=== PATIENT | female | born 1990 | race Caucasian/White ===

== ENCOUNTER 2021-11-27 14:52 | Emergency (ER) | payer OTHER, SELFPAY ==
[2021-11-27 15:40] VITALS: BP 157/95; PULSE 89; RESP 19; TEMP 37.2; O2SAT 100; BMI 24.1
--- NOTE | 2021-11-27 16:00 | PC.NURSE ---
TDAP GIVEN AT THIS TIME IN LEFT DELTOID. LOT #[id number] EXP. 09/17/23
--- NOTE | 2021-11-27 16:00 | EXP.UTC ---
Discharge Plan Referrals Follow up/Referrals: Provider,Referral, MD [Primary Care Provider] - See instructions Activity Restrictions/Add. Instructions Additional Instructions/Restrictions: Do not pick off dermabond allow it wear off Ice packs to brow and nose may help with swelling and bruising Return if need Straight to ER if any life threatening symptoms Clinical Impressions Clinical Impression: Laceration Instructions Patient Instructions: DI for Laceration Repair-Skin Glue Discharge ED Provider: Criss Haw[place] [facility] [place] General Stated complaint: [id number] hit in head, metal gate, home accid Mode of Arrival: Ambulatory Source of Information: Patient Limitations: No Limitations Time Seen by Provider: 11/27/21 16:00 Description of Symptoms (Recalled from Triage Doc. by RN): PATIENT REPORTS A BARN GATE HIT HER IN FACE TODAY. DENIES LOC. 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 and it come back and hit her in the face She has small laceration above left eye brown and small abrasion like lac on nose Denies LOC Related Data Allergies Allergy/AdvReac Type Severity Reaction Status Date / Time amoxicillin Allergy Verified 11/27/21 15:55 Worker's Comp Is this a Worker's Comp case?: No [facility] Medical History (Updated 11/27/21 @ 16:24 by Criss Hawley, CASHIER MANAGER) No significant past medical history Social History (Updated 11/27/21 @ 15:55 by Sarah Rojas RN) Smoking Status: Unknown if ever smoked alcohol intake: never current occupational status: other Travel in the last 8 weeks: None ROS Obtained: Yes All systems reviewed & no additional complaints except as documented and Yes Systems reviewed as appropriate & no additional complaints except as documented Eyes Eyes: Reports system reviewed and no additional complaints, except as documented and Reports as per HPI ENT Ears, Nose, Mouth, and Throat: Reports system reviewed and no additional complaints, except as documented and Reports as per HPI Cardiovascular Cardiovascular: Reports system reviewed and no additional complaints, except as documented and Reports as per HPI Integumentary/Breasts Skin/Breast: Reports system reviewed and no additional complaints, except as documented, Reports as per HPI and Reports other (laceration above left eyebrown adn nose) Neurologic Neurologic: Reports system reviewed and no additional complaints, except as documented, Reports as per HPI and Reports other (Denies loc) Physical Exam General General appearance: alert and in no apparent distress Expanded Head Exam Head image: 1. small laceration noted no active bleeding 2. small lac/abrasion noted no active bleeding Eye Eye exam: Present normal appearance, PERRL and EOMI Respiratory Respiratory exam: Present normal lung sounds bilaterally; Absent respiratory distress Cardiovascular Cardiovascular exam: Present regular rate, normal rhythm and normal heart sounds Neurological Exam Neurological exam: Present alert, oriented X3 and normal gait Medical Decision Making Rod Inquiry Pt receiving controlled substance: No Rod was queried for this patient: No Vital Signs: 11/27/21 15:40 Temperature 98.9 F Temperature Source Oral Pulse Rate [Right Brachial] 89 Respiratory Rate 19 Blood Pressure [Right Arm] 157/95 H Blood Pressure Mean [Right Arm] 115 Blood Pressure Source [Right Arm] Automatic Cuff Blood Pressure Position [Right Arm] Sitting 02 Sat by Pulse Oximetry 100 Oxygen Delivery Method Room Air Medical Decision Narrative: Discussed xray and patient declined Procedures Laceration Laceration 1:
[2021-11-27 16:40] VITALS: BP 157/95; PULSE 89; RESP 19; TEMP 37.2; O2SAT 100
== END 2021-11-27 16:44 | disposition home or self-care (01) ==
LOC: ER 15:00 → UTC 15:01
PROVIDERS: Emergency Provider Nurse Practitioner
DX: S01.81XA Laceration without foreign body of other part of head, initial encounter (principal); S01.21XA Laceration without foreign body of nose, initial encounter; W20.8XXA Other cause of strike by thrown, projected or falling object, initial encounter; Y93.K9 Activity, other involving animal care; Y92.71 Barn as the place of occurrence of the external cause
CPT/HCPCS: 90471; 99212; G0463

== ENCOUNTER 2024-08-25 10:08 | Emergency (ER) | payer BC, SELFPAY ==
[2024-08-25 10:16] VITALS: BP 152/98; PULSE 104; RESP 18; TEMP 36.9; O2SAT 100; BMI 25.7
--- OUTSIDE RECORDS SUMMARY | 2024-08-25 10:20 | XMS_ITS | Encounter Summary ---
Author Organization [employer] Address [address] [place] [id number] Care Team Providers Care Bull Gang Supervisor Name Role Phone Unavailable Primary Care Provider Unavailabl e Encounter Details Date Type Department Care Team (Late st Contact Info) Description 07/03/2018 Transcribed [place] [facility] [place] [facility] [place] [address] ProviderTalia [place] [facility] [place] [address] Social History Tobacco Use Types Packs/Day Years Used Date Smoking Tobacco: Never Assessed Comments Unknown Sex and Gender Information Value Date Recorded Sex Assigned at Female 09/02/2021 7:31 PM CDT Legal Sex Female 7:31 PM CDT Gender Identity Female 09/02/2021 7:31 PM CDT Sexual Orientation Not on file documented as of this encounter Miscellaneous Notes * [employer] Conversion Note - Talia English MD - 07/03/2018 8:51 PM CDT ED Discharge Entered On: 07/03/2018 20:55 EDT Performed On: 07/03/2018 20:51 EDT by Adrienne Martinez RN Discharge Process Patient Disposition : Discharge Personal Belongings With Patient : Yes Patient Education Completed : Yes Teaching Evaluation : Verbalizes understanding IV Discontinued : Not applicable Nursing Documentation Completed : Yes Adrienne Martinez RN - 07/03/2018 20:55 EDT ED Discharge Discharge To : Home with ambulatory/outpatient follow-up Mode Of Departure : Ambulatory, Private vehicle Accompanied By : Unaccompanied Discharge Instructions Reviewed With, Opportunity For Questions Given : Patient Prescriptions Given to Patient : Electronically sent Adrienne Martinez RN - 07/03/2018 20:55 EDT Electronically signed by Benito [facility] Conversion Washerette Machine Operator Magi at 06/24/2022 10:32 PM CDT documented in this encounter Plan of Treatment Not on file documented as of this encounter Visit Diagnoses Not on filedocumented in this encounter
--- OUTSIDE RECORDS SUMMARY | 2024-08-25 10:20 | XMS_ITS | Encounter Summary ---
Author Organization [email or web address] Address [address] [place] [id number] Care Team Providers Care Brain Picker Name Role Phone Unavailable Primary Care Provider Unavailabl e Encounter Details Date Type Department Care Team (Late st Contact Info) Description 07/03/2018 Transcribed Document [facility] [place] [facility] [place] [address] ProviderTalia MD [address] [place] [address] Social History Tobacco Use Types Packs/Day Years Used Date Smoking Tobacco: Never Assessed Comments Unknown Sex and Gender Information Value Date Recorded Sex Assigned at Female 09/02/2021 7:31 PM CDT Legal Sex Female 7:31 PM CDT Gender Identity Female 09/02/2021 7:31 PM CDT Sexual Orientation Not on file documented as of this encounter Miscellaneous Notes * [employer]ner Conversion Note - Historical ProviderMD - 07/03/2018 8:40 PM CDT Electronically signed by Benito, [facility] Conversion Apple Press Operator Cerner at 06/24/2022 10:22 PM CDT documented in this encounter Plan of Treatment Not on file documented as of this encounter Visit Diagnoses Not on filedocumented in this encounter
--- OUTSIDE RECORDS SUMMARY | 2024-08-25 10:20 | XMS_ITS | Referral Summary ---
Author Organization [employer] Address [address] [place] [id number] Care Team Providers Care Upholstered Goods Crafter Name Role Phone Unavailable Primary Care Provider Unavailabl e Social History Tobacco Use Types Packs/Day Years Used Date Smoking Tobacco: Never Assessed Comments Unknown Sex and Gender Information Value Date Recorded Sex Assigned at Female 09/02/2021 7:31 PM CDT Legal Sex Female 7:31 PM CDT Gender Identity Female 09/02/2021 7:31 PM CDT Sexual Orientation Not on file Plan of Treatment Not on file
--- OUTSIDE RECORDS SUMMARY | 2024-08-25 10:20 | XMS_ITS | Encounter Summary ---
Author Organization [employer] Address [address] [place] [address] Care Team Providers Care Wrapper Rewinder Name Role Phone Unavailable Primary Care Provider Unavailabl e Encounter Details Date Type Department Care Team (Late st Contact Info) Description 07/03/2018 Transcribed Document [facility] [place] [address] [place] [address] ProviderTalia MD [address] [place] [address] Social History Tobacco Use Types Packs/Day Years Used Date Smoking Tobacco: Never Assessed Comments Unknown Sex and Gender Information Value Date Recorded Sex Assigned at Female 09/02/2021 7:31 PM CDT Legal Sex Female 7:31 PM CDT Gender Identity Female 09/02/2021 7:31 PM CDT Sexual Orientation Not on file documented as of this encounter Miscellaneous Notes * Cerner Conversion Note - Talia ProviderMD - 07/03/2018 8:48 PM CDT [facility] [address] [place] [address] SERENA NULL :1990 Visit Time:07/03/2018 Your Visit Summary Your Care Team Admitting Physician - NITZA VELOZ MD-JOANIE Attending Physician - NITZA VELOZ MD-JOANIE Primary [facility]erring Physician - NITZA VELOZ MD-JOANIE Your Diagnosis Abrasion of knee Contusion of right knee Knee pain-swelling Patient Portal Reminder: Be sure to sign up for the [facility] patient portal, which gives you 28/09 access to your medical information ??? including these discharge instructions ??? using your computer, smartphone, or tablet. Just go to [email or web address] to get started. Questions? Call . You may also obtain a copy of your Emergency Department visit from Medical Records by calling the hospital phone number listed above and asking to be directed to the Medical Records Department. If you had special tests, such as EKG???s or X-rays, the interpretation of your tests given to you by the Emergency Department Physician is a preliminary report. Some fractures and illnesses fail to show up on preliminary tests. These will be reviewed again and we will call you if there are any new suggestions. If your symptoms continue notify your physician. After you leave, you should follow the instructions provided. What to do next Follow-Up Appointments [facility] When Within 2 to 3 days Where: [facility] [place] [address] Business (1) Follow Up with MARTINE GE When Within 2 to 3 days Comments Follow-up with primary care provider within 2-3 days of ED visit. Take medications as prescribed. Return to ED if symptoms worsen Where: [address] [place] [address] [address] [facility] (1) Allergies No Known Allergies Immunizations This Visit No Immunizations Found Medications What How Much When Instructions Next Dose New ibuprofen (ibuprofen 800 mg oral tablet) 1 Tablet(s) Oral Three Times A Day as needed for as needed for pain Duration: 5 Day(s) Pickup at [facility] Unchanged lisinopril Oral Every Day Pharmacy Information [facility]: [address] [place], [place] [id number] [phone] The home medications listed are only as accurate as the information you provided. Please continue taking all of your medications prescribed by your Primary Care Provider unless specifically told to change or discontinue the medication. Please direct any questions regarding your home medications to your Primary Care Provider. Take your medications faithfully. Do NOT skip medication. Do NOT stop taking medications without the direction of a physician. Carry a list of your medications with you at all times, and take this medication list with you to your first follow up visit. Report any side effects. Avoid herbal remedies unless discussed with your physician. As part of your treatment plan, your physician may have prescribed a limited course of a controlled substance. This medication may be given to help people with moderate or severe pain or for other medical conditions, but there are risks involved with treatment. Common side effects may include nausea, constipation, drowsiness, sweating, itching, dry mouth, and rash. More serious side effects may include cognitive and motor impairment, like problems with thinking, concentrating, alertness, and movement (e.g. slowed reflexes), and driving and operating heavy machinery can be dangerous. It is important for you to talk to your physician if you have these side effects or questions. These controlled substances can produce physical dependence and be habit-forming if taken for an extended period of time, which means that the body has gotten used to them and may experience withdrawal symptoms if they are abruptly stopped. Withdrawal symptoms can include runny nose, sweating, goose bumps, diarrhea, abdominal cramping, rapid heartbeat, difficulty sleeping, and nervousness. Please dispose of unused and medications per pharmacy guidance. Test Results Laboratory or Other Results This Visit (last charted value for your 07/03/2018 visit) No Laboratory or Other Results This Visit Education Materials Knee Sprain, Adult A knee sprain is a stretch or tear in a knee ligament. Knee ligaments are bands of tissue that connect bones in the knee to each other. What are the causes? This condition often results from: ??? A fall. ??? An injury to the knee. What are the signs or symptoms? Symptoms of this condition include: ??? Trouble bending the leg. ??? Swelling in the knee. ??? Bruising around the knee. ??? Tenderness or pain in the knee. ??? Muscle spasms around the knee. How is this diagnosed? This condition may be diagnosed based on: ??? A physical exam. ??? What happened just before you started to have symptoms. ??? Tests, including: ? An X-ray. This may be done to make sure no bones are broken. ? An MRI. This may be done to check if the ligament is torn. ? Stress testing of the knee. This may be done to check ligament damage. How is this treated? Treatment for this condition may involve: ??? Keeping the knee still (immobilized) with a cast, brace, or splint. ??? Applying ice to the knee. This helps with pain and swelling. ??? Keeping the knee raised (elevated) above the level of your heart when you are resting. This helps with pain and swelling. ??? Taking medicine for pain. ??? Exercises to prevent or limit permanent weakness or stiffness in your knee. ??? Surgery to reconnect the ligament to the bone or to reconstruct it. This may be needed if the ligament tore all the way. Follow these instructions at home: If you have a splint or brace: ??? Wear the splint or brace as told by your health care provider. Remove it only as told by your health care provider. ??? Loosen the splint or brace if your toes tingle, become numb, or turn cold and blue. ??? Keep the splint or brace clean. ??? If the splint or brace is not waterproof: ? Do notlet it get wet. ? Cover it with a watertight covering when you take a bath or a shower. If you have a cast: ??? Do notstick anything inside the cast to scratch your skin. Doing that increases your risk of infection. ??? Check the skin around the cast every day. Tell your health care provider about any concerns. ??? You may put lotion on dry skin around the edges of the cast. Do not put lotion on the skin underneath the cast. ??? Keep the cast clean. ??? If the cast is not waterproof: ? Do notlet it get wet. ? Cover it with a watertight covering when you take a bath or a shower. Managing pain, stiffness, and swelling ??? If directed, put ice on the injured area. ? If you have a removable splint or brace, remove it as told by your health care provider. ? Put ice in a plastic bag. ? Place a towel between your skin and the bag or between your cast and the bag. ? Leave the ice on for 20 minutes, 2???3 times a day. ??? Gently move your toes often to avoid stiffness and to lessen swelling. ??? Elevate the injured area above the level of your heart while you are sitting or lying down. ??? Take [id number] and prescription medicines only as told by your health care provider. General instructions ??? Do exercises as told by your health care provider. ??? Keep all follow-up visits as told by your health care provider. This is important. Contact a health care provider if: ??? You have pain that gets worse. ??? The cast, brace, or splint does not fit right. ??? The cast, brace, or splint gets damaged. Get help right away if: ??? You cannot use your injured joint to support any of your body weight (cannot bear weight). ??? You cannot move the injured joint. ??? You cannot walk more than a few steps without pain or without your knee buckling. ??? You have significant pain, swelling, or numbness below the cast, brace, or splint. This information is not intended to replace advice given to you by your health care provider. Make sure you discuss any questions you have with your health care provider. Document Released: 02/22/2006 Document Revised: 11/11/2016 Document Reviewed: 09/11/2016 [employer] Patient Education ?? 2017 [employer]. Abrasion Introduction An abrasion is a cut or scrape on the surface of your skin. An abrasion does not go through all of the layers of your skin. It is important to take good care of your abrasion to prevent infection. Follow these instructions at home: Medicines ??? Take or apply medicines only as told by your doctor. ??? If you were prescribed an antibiotic ointment, finish all of it even if you start to feel better. Wound care ??? Clean the wound with mild soap and water 2???3 times per day or as told by your doctor. Pat your wound dry with a clean towel. Do not rub it. ??? There are many ways to close and cover a wound. Follow instructions from your doctor about:? How to take care of your wound. ? When and how you should change your bandage (dressing). ? When and how you should take off your dressing. ??? Check your wound every day for signs of infection. Watch for: ? Redness, swelling, or pain. ? Fluid, blood, or pus. General instructions ??? Keep the dressing dry as told by your doctor. Do not take baths, swim, use a hot tub, or do anything that would put your wound underwater until your doctor says it is okay. ??? If there is swelling, raise (elevate) the injured area above the level of your heart while you are sitting or lying down. ??? Keep all follow-up visits as told by your doctor. This is important. Contact a doctor if: ??? You were given a tetanus shot and you have any of these where the needle went in:? Swelling. ? Very bad pain. ? Redness. ? Bleeding. ??? Medicine does not help your pain. ??? You have any of these at the site of the wound: ? More redness. ? More swelling. ? More pain. Get help right away if: ??? You have a red streak going away from your wound. ??? You have a fever. ??? You have fluid, blood, or pus coming from your wound. ??? There is a bad smell coming from your wound. This information is not intended to replace advice given to you by your health care provider. Make sure you discuss any questions you have with your health care provider. Document Released: 08/10/2008 Document Revised: 07/30/2016 Document Reviewed: 02/20/2015 ?? 2017 [employer] Emergency Awareness and Preventative Care STROKE is an EMERGENCY Every Minute Counts Act FAST and Check for these signs: FACE Does the face look uneven? ARM Does one arm drift down? SPEECH Does their speech sound strange? TIME Call at any sign of stroke Stroke Risk Factors Atrial Fibrillation (irregular heartbeat) Diabetes Family history of stroke Heart Disease Heavy alcohol use High Blood Pressure High Cholesterol Physical inactivity and obesity Smoking Cigarette Smoking The facts are clear, cigarette smoking will shorten your life. Smoking can cause many illnesses along the way. As a healthcare provider, we recommend that you stop smoking. Assistance with quitting is available by contacting 2-731-BKPK-NOW. This is a free resource providing counseling, support, and referral. Or you may contact your personal physician. National Suicide Prevention Lifeline: The National Suicide Prevention Lifeline is a national network of local crisis centers that provides free and confidential emotional support to people in suicidal crisis or emotional distress 24 hours a day, 7 days a week. Don't Wait! Stop a Heart Attack Before it Starts What is a heart attack? A heart attack is damage or to a part of the heart from severely decreased or lack of blood flow to the heart. Over time, arteries can become narrow from the buildup of fat and cholesterol, which is called plaque. The plaque can rupture causing a blood clot to form. When the blood clot forms, the artery can become severely narrowed or completely blocked, causing a heart attack. Heart attack is the leading cause of in the [place]. 85% of muscle damage occurs within the first 2 hours. Delay in the recognition of heart attack symptoms increases the chances of . Know the early symptoms of a heart attack: Nausea Feeling of fullness in chest Jaw Pain Pain that travels down one or both arms Fatigue/being tired Anxiety Back Pain Chest pressure, squeezing, or discomfort Shortness of breath Sweating, or a cold sweat Feeling of impending doom There are unusual signs of a heart attack, too! Women, the elderly, and diabetics may present with atypical symptoms: Fainting/dizziness Weakness Confusion Risk Factors for a Heart Attack Some heart disease risk factors, such as age and family history, cannot be changed. Others, like smoking and lack of exercise, can be changed. Smoking High Cholesterol High Blood Pressure Family History Obesity Age Gender (Males are at higher risk) Lack of Exercise Diabetes Diet Stress Excessive Alcohol Intake If you or someone you know is experiencing the signs and symptoms of a heart attack, DON???T DELAY. Call immediately and seek help. If someone collapses, perform CPR! Do not attempt to drive if you are having symptoms of heart attack. Hands-Only CPR Why Hands-Only CPR? Hands-Only CPR has been shown to be as effective as conventional CPR for cardiac arrests that occur outside of a hospital. Survival depends on immediately receiving CPR from someone nearby. How do you perform Hands-Only CPR? There are two easy steps: Call if you see a teen or adult collapse Push hard and fast in the center of the chest at a beat of 100 beats per minute. Save a life! 4 WAYS TO GET AHEAD OF SEPSIS SEPSIS is a MEDICAL EMERGENCY. Time matters! Infections put you and your family at risk for a life-threatening condition called sepsis. Sepsis is the body's extreme response to an infection. It is life-threatening, and without timely treatment, sepsis can rapidly lead to tissue damage, organ failure, and . Sepsis happens when an infection you already have-in your skin, lungs, urinary tract or somewhere else-triggers a chain reaction throughout your body. 1 PREVENT INFECTIONS Take good care of chronic conditions. Talk to your doctor about getting the recommended vaccines. 2 PRACTICE GOOD HYGIENE Wash your hands frequently. Keep cuts or open sores clean and covered until they are healed. 3 KNOW THE SYMPTOMS Confusion or disorientation Shortness of breath High heart rate Fever, shivering, or feeling very cold Extreme pain or discomfort Clammy or sweaty skin 4 ACT FAST Get medical care IMMEDIATELY if you suspect sepsis or if you have an infection that is not getting better or is getting worse. To learn more about sepsis and how to prevent infections, visit www.cdc.gov/sepsis. The examination and treatment you have received in the Emergency Department has been done to provide an appropriate evaluation and stabilizing treatment on an emergency basis only. Given the limited resources, it is not meant to be a substitute for complete medical care. The follow-up doctor you named will receive a copy of your records and all test reports. IT IS IMPORTANT THAT YOU SCHEDULE A FOLLOW-UP APPOINTMENT AND ARE RE-EVALUATED. You should report any new complaints, symptoms, or remaining problems at that time. IT IS IMPOSSIBLE FOR THE EMERGENCY DEPARTMENT TO RECOGNIZE AND TREAT ALL ELEMENTS OF INJURY OR ILLNESS IN A SINGLE VISIT. If you have been referred to a specialist physician, it means that we believe you may have a condition that requires the expertise of a specialist. These physicians work in partnership with the hospital and have agreed to see referred patients in their office for further evaluation. KEEP IN MIND THAT THE SPECIALIST HAS HIS/HER OWN OFFICE POLICIES WHICH MAY REQUIRE PROPER INSURANCE OR PAYMENT UP FRONT BEFORE THE SPECIALIST WILL SEE YOU. It is your responsibility to call the specialist physician to make an appointment. We do not have the ability to refer patients to specialists/physicians that work with specific insurance companies. Please be advised that all financial charges or billing practices are determined by that practice, not the hospital. If your insurance company requires that you see a specialist from their approved list, it is your responsibility to contact your insurance company to make those arrangements. It is also your responsibility to follow any other requirements of your insurance company necessary to obtain coverage for claims submitted. We will bill your insurance; however, you are responsible today for any co-pay amounts. You will receive a separate bill for any services you may have received including: emergency, radiology, or pathology physicians. Patient Name:SERENA NULL I have received this information and was given the opportunity to ask questions. Patient/Materials Inspector Name: Patient/Materials Inspector Signature: Relationship to Patient: Clinician/Hospital Materials Inspector Signature: Please Provide a Telephone Number Where You Can Be Reached: Is it Permissible To Leave a Message? Date: documented in this encounter Plan of Treatment Not on file documented as of this encounter Visit Diagnoses Not on filedocumented in this encounter
--- OUTSIDE RECORDS SUMMARY | 2024-08-25 10:20 | XMS_ITS | Clinical Summary ---
Author Organization [employer] Address [address] [place] [address] Care Team Providers Care Cloth Winder Machine Operator Name Role Phone Unavailable Primary Care Provider [...]
--- OUTSIDE RECORDS SUMMARY | 2024-08-25 10:20 | XMS_ITS | Encounter Summary ---
Author Organization [employer] Address [address] [place] [address] Care Team Providers Care Lab Intern Name Role Phone Unavailable Primary Care Provider Unavailabl e Encounter Details Date Type Department Care Team (Late st Contact Info) Description 07/03/2018 Transcribed Document [facility] [place] [facility] [place] [place] [address] ProviderTalia MD [facility] [place] [address] Social History Tobacco Use Types [...] Conversion Note - Talia ProviderMD - 07/03/2018 7:58 PM CDT ED Triage Entered On: 07/03/2018 20:03 EDT Performed On: 07/03/2018 20:01 EDT by Adrienne Martinez RN ED Triage Across the Room Triage Date/Time : 07/03/2018 20:01 EDT Chief Complaint : Right knee pain s/p falling and landing on a rock last PM. Pt has hx of hypertension but has not had medication today. Adrienne Martinez RN - 07/03/2018 20:01 EDT DCP GENERIC CODE Tracking Acuity : 4 - Non - Urgent Tracking Group : [facility] ED Adrienne Villanueva RN - 07/03/2018 20:01 EDT Mode of Arrival : Ambulatory Transported to ED by : Walk in To Room Via : Ambulate Accompanied By : Unaccompanied ED Vital Signs : Document Height & Weight : Document ED Allergies : Document ED Reason for Visit : Document Special Events : FastER Patient Tetanus Immunization : Greater than 5 years Adrienne Martinez RN - 07/03/2018 20:01 EDT Infectious Disease History Infectious Disease History : Chicken pox/Shingles Fever/Chills Last 48 Hours : No Travel To Regions with Travel Advisories : No Travel Outside [place] Within Last 30 Days : No Contact With Traveler to Advisory Region : No Tuberculosis Symptoms : None Adrienne Martinez RN - 07/03/2018 20:01 EDT Vital Signs ED Temperature Source : Oral Temperature Mode : Fahrenheit Temperature, Fahrenheit : 98.5 Deg F Clinical Temperature, C : 36.9 Deg C Oxygen Therapy Mode : Room air Peripheral Pulse Rate : 118 bpm (HI) Respiratory Rate : 18 Breaths/Min Systolic Blood Pressure : 171 mmHg (HI) Diastolic Blood Pressure : 103 mmHg (HI) Oxygen Saturation : 97 % Adrienne Martinez RN - 07/03/2018 20:01 EDT Allergy (As Of: 07/03/2018 20:03:53 EDT) Allergies (Active) No Known Allergies Estimated Onset Date: Unspecified ; Created By: MARTINE JOHNSON RN; Reaction Status: Active ; Category: Drug ; Substance: No Known Allergies ; Type: Allergy ; Updated By: MARTINE JOHNSON RN; Reviewed Date: 07/03/2018 20:02 EDT Diagnosis Control ED (As Of: 07/03/2018 20:03:53 EDT) Problems(Active) Hypertension (SNOMED CT :4936498 ) Name of Problem: Hypertension ; Recorder: Adrienne Martinez RN; Confirmation: Confirmed ; Classification: Medical ; Code: [id number] ; Contributor System: PPT Reasearch ; Last Updated: 07/03/2018 20:03 EDT ; Life Cycle Date: 07/03/2018 ; Life Cycle Status: Active ; Vocabulary: SNOMED CT Diagnoses(Active) Knee pain-swelling Date: 07/03/2018 ; Diagnosis Type: Reason For Visit ; Confirmation: Complaint of ; Clinical Dx: Knee pain-swelling ; Classification: Medical ; Clinical Service: Emergency medicine ; Code: PNED ; Probability: 0 ; Diagnosis Code: [id number] ED Height and Weight Height Source : Stated Height Entry Format : [place] Height, Feet : 5 ft(Converted to: 152 cm, 60 Inch) Height, Inches : 4 Inch(Converted to: 0 ft 4 Inch, 10.16 cm) Clinical Height : 162.56 cm Weight Source, ED : Critical estimated dosing weight Weight Entry Format : [place] Weight, Pounds : 195 lb Clinical Dosing Weight : 88.64 kg Body Surface Area (BSA) : 1.94 m2 Body Mass Index : 33.5 kg/m2 (HI) [place] Body Weight (IBW) : 54.3 kg Adrienne Martinez RN - 07/03/2018 20:01 EDT Electronically signed by [facility] Conversion Emergency Room Physician Cerner at 06/24/2022 10:23 PM CDT documented in this encounter Plan of Treatment Not on file documented as of this encounter Visit Diagnoses Not on filedocumented in this encounter
--- OUTSIDE RECORDS SUMMARY | 2024-08-25 10:20 | XMS_ITS | Encounter Summary ---
Author Organization [employer] Address [address] [place] [address] Care Team Providers Care Analytics Analyst Name Role Phone Unavailable Primary Care Provider Unavailabl e Encounter Details Date Type Department Care Team (Late st Contact Info) Description 07/03/2018 Transcribed Document [facility] [place] [address] [place] [address] ProviderTalia MD [facility] [place] [address] Social History Tobacco Use Types [...] Conversion Note - Historical ProviderMD - 07/03/2018 10:16 PM CDT CR Knee 3 Vws RT Ordered: 07/03/2018 Auth (Verified) Reason for Exam: PAIN 07/03/2018 21:23 07/03/2018 22:16 (JOLYNN TALBERT PA) Reviewed by Provider, No further action required x1 documented in this encounter Plan of Treatment Not on file documented as of this encounter Visit Diagnoses Not on filedocumented in this encounter
--- OUTSIDE RECORDS SUMMARY | 2024-08-25 10:20 | XMS_ITS | Encounter Summary ---
Author Organization [employer] Address [address] [place] [id number] Care Team Providers Care Supervisor Boiler Repair Name Role Phone Unavailable Primary Care Provider Unavailabl e Encounter Details Date Type Department Care Team (Late st Contact Info) Description 07/03/2018 Transcribed Document [facility] [place] [facility] [place] [address] ProviderTalia MD [address] [place] [address] Social History Tobacco Use Types [...] ProviderMD - 07/03/2018 7:58 PM CDT ED Assessment Entered On: 07/03/2018 20:04 EDT Performed On: 07/03/2018 20:03 EDT by Adrienne Martinez RN ED Quick Look Assessment Level of Consciousness : Alert Affect/Behavior : Appropriate, Calm, Cooperative Orientation : Oriented x 4 Skin Temperature : Warm Skin Description : Dry Adrienne Martinez RN - 07/03/2018 20:03 EDT ED General-Functional Assess Information Obtained From : Patient Communication Barrier : None Primary Language : Mongolian Any Spiritual/Cultural Needs or Requests : No Currently in Unsafe Situation : No Adrienne Martinez RN - 07/03/2018 20:03 EDT Social Habits Smoking Status : 10 or more cigarettes (1/2 pack or more)/day in last 30 days Smokeless Tobacco Status : Never Desires Tobacco Cessation Medication : No Reason for No Tobacco Cessation Medication : ED/procedural patient only Desires Tobacco Cessation Calc : 1 Adrienne Martinez, RN - 07/03/2018 20:03 EDT Social History (As Of: 07/03/2018 20:04:27 EDT) Tobacco: 10 or more cigarettes (1/2 pack or more)/day in last 30 days Smoking Status. (Last Updated: 07/03/2018 20:04:21 EDT by Adrienne Martinez, RN) Alcohol: Alcohol Use History Yes. Alcohol Use Frequency Socially. (Last Updated: 07/03/2018 20:04:25 EDT by Adrienne Martinez, MIGUEL) documented in this encounter Plan of Treatment Not on file documented as of this encounter Visit Diagnoses Not on filedocumented in this encounter
--- OUTSIDE RECORDS SUMMARY | 2024-08-25 10:20 | XMS_ITS | Encounter Summary ---
Author Organization [employer] Address [address] [place] [id number] Care Team Providers Care Heat Treat Operator Name Role Phone Unavailable Primary Care Provider Unavailabl e Encounter Details Date Type Department Care Team (Late st Contact Info) Description 07/03/2018 Transcribed Document [facility] [place] [address] [place] [address] ProviderTalia MD [address] [place] [address] Social History Tobacco Use Types [...] Conversion Note - Historical ProviderMD - 07/03/2018 8:10 PM CDT Patient: SERENA NULL Age: 27 years Sex: Female : 1990 Associated Diagnoses: Abrasion of knee; Contusion of right knee; Knee pain-swelling Author: JOLYNN TALBERT PA Basic Information Time seen: Date & time 07/03/2018 20:05:00. History source: Patient. Arrival mode: Private vehicle. History limitation: None. Additional information: Chief Complaint from Nursing Triage Note : Chief Complaint 07/03/2018 20:01 EDT Chief Complaint Right knee pain s/p falling and landing on a rock last PM. Pt has hx of hypertension but has not had medication today. . History of Present Illness The patient presents with knee pain. The onset was 1 days ago. The course/duration of symptoms is constant. Type of injury: fall and hit knee on rock . The character of symptoms is pain and swelling, not tingling, not numbness, not redness and no bleeding. The degree at present is moderate. There are exacerbating factors including movement, weight bearing and walking. The relieving factor is immobilization. Risk factors consist of none. Therapy today: none. Associated symptoms: denies fever, denies chills, denies rash, denies edema, denies chest pain, denies shortness of breath and denies back pain. Review of Systems Constitutional symptoms: Negative except as documented in HPI. Skin symptoms: Negative except as documented in HPI. Musculoskeletal symptoms: Negative except as documented in HPI. Neurologic symptoms: Negative except as documented in HPI. Health Status Allergies: Allergic Reactions (Selected) No Known Allergies. Medications: (Selected) Documented Medications Documented lisinopril: Oral, Daily, 0 Refill(s). Past Medical/ Family/ Social History Surgical history: No active procedure history items have been selected or recorded.. Family history: No family history items have been selected or recorded.. Social history: Social & Psychosocial Habits Alcohol 07/03/2018 Alcohol Use History, Social Habits Yes Alcohol Use Frequency Socially Tobacco 07/03/2018 Smoking Status 10 or more cigarettes (1/ . Problem list: Active Problems (1) Hypertension . Physical Examination Vital Signs Vital Signs/Vital Measures 07/03/2018 20:01 EDT Temperature Source Oral Temperature Mode Fahrenheit Temperature, Fahrenheit 98.5 Deg F Clinical Temperature, C 36.9 Deg C Peripheral Pulse Rate 118 bpm HI Respiratory Rate 18 Breaths/Min Systolic Blood Pressure 171 mmHg HI Diastolic Blood Pressure 103 mmHg HI Oxygen Saturation 97 % Oxygen Therapy Mode Room air . Measurements 07/03/2018 20:01 EDT Height Source Stated Height Entry Format [place] Height/Length, SCOTTISH (ft) 5 ft Height/Length SCOTTISH 4 Inch CLINICALHEIGHT 162.56 cm [place] Body Weight 54.3 kg Weight Source, ED Critical estimated dosing weight Weight Entry Format [place] Weight [place] lb 195 lb CLINICALWEIGHT 88.64 kg Body Surface Area (BSA) 1.94 m2 Body Mass Index 33.5 kg/m2 HI . Oxygen Saturation 07/03/2018 20:01 EDT Oxygen Saturation 97 % . General: Alert, no acute distress. Skin: Warm, dry, pink. Cardiovascular Musculoskeletal: Lower extremity: Right, anterior, knee, aligned, tenderness, swelling, abrasion, range of motion restricted by pain, no erythema, no ecchymosis, no deformity. Neurological: Alert and oriented to person, place, time, and situation. Psychiatric: Cooperative, appropriate mood & affect. Medical Decision Making Differential Diagnosis: Sprain, strain, fracture. Documents reviewed: Emergency department nurses' notes. Knee x-ray findings Within normal findings, normal alignment, no fracture, interpretation by Emergency Physician, no foreign body, interpreted by Dr. Ybarra ED physician . Notes: Patient placed in a knee immobilizer, crutches for comfort, ergonomics technician placed brace, evaluated by myself afterwards with proper alignment, neurovascularly intact. and asked to follow-up with orthopedics within 1 week. Patient was agreeable to treatment plan and was discharged home in stable condition, vital signs stable at time of discharge. I did discuss signs and symptoms that should prompt to return to the emergency department and she was understanding.. Impression and Plan Diagnosis Abrasion of knee - Discharge, Emergency medicine, Medical Contusion of right knee - Discharge, Emergency medicine, Medical Complaint of Knee pain-swelling - Reason For Visit, Emergency medicine, Medical Plan Condition: Stable. Prescriptions: Prescription [facility]: ibuprofen 800 mg oral tablet (Prescribe): 1 Tab, Oral, TID, for 5 Day(s), PRN: as needed for pain, 15 Tab, 0 Refill(s). Patient was given the following educational materials: Abrasion, [id number], Knee Sprain, Adult, Knee Sprain, Adult, Abrasion, [id number]. Follow up with: MARTINE GE Within 2 to 3 days Follow-up with primary care provider within 2-3 days of ED visit. Take medications as prescribed. Return to ED if symptoms worsen; [facility] Within 2 to 3 days. Counseled: Patient, Regarding diagnosis, Regarding diagnostic results, Regarding treatment plan, Regarding prescription, Patient indicated understanding of instructions. documented in this encounter Plan of Treatment Not on file documented as of this encounter Visit Diagnoses Not on filedocumented in this encounter
--- NOTE | 2024-08-25 10:25 | HMH.EDGENADL ---
Discharge Plan Disposition Patient Disposition: Home, Self-Care Condition: Good Prescriptions Prescriptions: New sulfamethoxazole-trimethoprim 800-160 mg tablet 1 tab PO BID Qty: 20 0RF Referrals Follow up/Referrals: Provider,Referral, MD [Primary Care Provider, Medical] - See instructions Activity Restrictions/Add. Instructions Additional Instructions/Restrictions: Begin taking the antibiotics today when you pick them up. Take them as prescribed and until completed. Perform sitz bath's at least 3 times per day to ensure the abscess continues to drain. Follow-up with your primary care provider for reevaluation and continued management. If you develop fevers, spreading redness or recurrence of the abscess, please return to the ER for reevaluation. Clinical Impressions Clinical Impression: Abscess of skin or subcutaneous tissue Qualifiers: Site of cutaneous abscess: buttock Qualified Code(s): L02.31 - Cutaneous abscess of buttock Instructions Patient Instructions: Hidradenitis Suppurativa, DI for Skin Abscess Print Language Print Language: [place] Islander Discharge ED Provider: Harleen Viramontes General Adult HPI General Chief complaint: Skin/Abscess/Foreign Body Stated complaint: abcess/infection on buttocks Time Seen by Provider: 08/25/24 10:12 History of Present Illness HPI narrative: Serena Lopes is a 33 y/o female presenting for a wound evaluation. Patient reports developing an area of swelling and tenderness approximately 4 days ago. She states it has gotten worse and she now finds it difficult to sit and painful to walk. Patient reports multiple family members having similar wounds during their lives. Patient does not have a formal diagnosis for these. Patient states she has gotten similar lesions in her inner thighs as well as the right buttock region. She had 1 on her breast at 1 point and 1 in her armpit. Patient denies fevers, chills, nausea, vomiting. Patient noted some drainage in her underwear today which is the first she has noticed. Patient reports burning in the area when she urinates. Related Data Previous Rx's ?Medication ?Instructions ?Recorded sulfamethoxazole 800 1 tab PO BID #20 tabs 08/25/24 mg-trimethoprim 160 mg tablet Allergies Allergy/AdvReac Type Severity Reaction Status Date / Time amoxicillin Allergy Other Verified 08/25/24 11:07 [facility] Disclaimer: The information contained in this section may have been updated after the patient was seen, as this information can be updated by other users. Medical History (Updated 08/25/24 @ 13:15 by Harleen Viramontes MD) History of supraventricular tachycardia Hypertension Surgical History (Updated 08/25/24 @ 10:25 by Mariza Penaloza RN) History of heart surgery Family History (Updated 08/25/24 @ 10:22 by Mariza Penaloza RN) Other No significant family history Social History (Updated 08/25/24 @ 10:22 by Mariza Penaloza RN) Smoking Status: Unknown if ever smoked alcohol intake: never current occupational status: employed and other Travel in the last 8 weeks?: None Have you lived/traveled outside US in past 30 days?: No Contact w/someone who lives/traveled outside US past 30 days?: No Exposure to someone with infectious disease in past 14 days?: No Do you have a fever (greater than 100.4 F or 38 C)?: No Have you tested positive for COVID-19?: No Exposed to someone with COVID-19 in past 14 days?: No Do you have a sore throat?: No Do you have a cough?: No Do you have any weakness?: No Do you have any diarrhea?: No Are you experiencing any unusual bleeding?: No Do you have any muscle aches/pain?: No Do you have any abdominal pain?: No Are you experiencing loss of taste or smell?: No ROS Obtained: Yes All systems reviewed & no additional complaints except as documented Physical Exam General General appearance: alert and in no apparent distress Respiratory Respiratory exam: Present normal lung sounds bilaterally Cardiovascular Cardiovascular exam: Present regular rate and normal rhythm Abdominal Exam Abdominal exam: Present soft; Absent distention or tenderness Neurological Exam Neurological exam: Present alert and oriented X3 Skin Skin exam: Present warm, dry and other (3 small openings without active drainage of the left lower gluteal cleft, mild surrounding erythema and firmness with tenderness.) Medical Decision Making Medical Records Medical records reviewed: Yes I reviewed the patient's medical records. Screening: Per USPSTF and CDC recommendations, given the prevalence of disease in our region, it is our hospital?s policy to screen for HIV and viral Hepatitis for all patients aged 18 and over and those with ongoing risk factors. Rod Inquiry Pt receiving controlled substance: No Vital Signs: 08/25/24 10:16 08/25/24 10:54 08/25/24 11:00 Temperature 98.4 F Temperature Source Oral Pulse Rate 79 81 Pulse Rate [Right Brachial] 104 H Respiratory Rate 18 18 Blood Pressure 116/72 116/71 Blood Pressure [Right Arm] 152/98 H Blood Pressure Mean Blood Pressure Mean [Right Arm] 116 Blood Pressure Source Automatic Cuff Blood Pressure Source [Right Arm] Automatic Cuff Blood Pressure Position 02 Sat by Pulse Oximetry 100 98 98 Oxygen Delivery Method Room Air Room Air Room Air 08/25/24 11:30 08/25/24 12:21 08/25/24 13:16 Temperature 97.9 F Temperature Source Oral Pulse Rate 84 77 77 Pulse Rate [Right Brachial] Respiratory Rate 18 16 16 Blood Pressure 115/70 127/79 117/77 Blood Pressure [Right Arm] Blood Pressure Mean 87 89 Blood Pressure Mean [Right Arm] Blood Pressure Source Automatic Cuff Automatic Cuff Blood Pressure Source [Right Arm] Blood Pressure Position Sitting 02 Sat by Pulse Oximetry 95 97 Oxygen Delivery Method Room Air Room Air Orders (Tests/Meds): ED MEDICATIONS Discontinued Medications Generic Name Dose Route Start Last Admin Trade Name Freq PRN Reason Stop Dose Admin Acetaminophen 1,000 mg 08/25/24 10:23 08/25/24 10:28 Acetaminophen 500mg Tab PO 08/25/24 10:24 1,000 mg ONCE ONE Administration Ibuprofen 800 mg 08/25/24 10:24 08/25/24 10:28 Ibuprofen 800 Mg Tablet PO 08/25/24 10:25 800 mg ONCE ONE Administration ORDERS Category Date Time Status POCUS Point of Care (ER Only) Stat Exams 08/25/24 10:23 Completed Wound Culture and Gram Stain Stat Micro 08/25/24 13:10 Results Medical Decision Narrative: In summary, this is a 33-year-old female presenting for wound check evaluation. Differential diagnosis includes but is not limited to, perirectal abscess, pilonidal abscess, hidradenitis suppurativa, among others. At this time, patient has no systemic symptoms. Patient reports no known history of Crohn's disease and is unlikely that these are medical collections representative of a coloenteric fistula. Based on her history of having these lesions in multiple areas as well as other family members with similar lesions during her lifetime, patient may have undiagnosed HS. Will evaluate with bedside ultrasound to determine if there is a discrete abscess that can be drained at bedside. Bedside ultrasound noted a large area of fluid collection. Topical lidocaine placed with a Tegaderm over the area of significant fluctuance. Topical lidocaine given at least 30 minutes to set in and upon removal of the Tegaderm, one of the areas of openings was already draining pus. A single stab incision was made and abscess was drained. Significant volume of purulent/pus drainage was expressed. Due to the location and concern for cleanliness, no packing was placed. Patient was advised that the wound would be left open and she would need to perform sitz bath's. Patient also advised that continued drainage may occur and is welcomed. Patient placed on Bactrim for adequate coverage of bacteria that is likely playing a role in her abscess. Patient was recommended to see her primary care provider for dermatology evaluation and further workup to determine if her recurrent abscesses are related to hidradenitis suppurativa. Strict return precautions given with regards to worsening infection. All questions answered and patient was discharged in stable condition. Harleen Viramontes MD Procedures Abscess I/D Site: sravani-rectal Side (if applicable): right Sedation/analgesia: none Local Anesthetic: other anesthetic (Topical lidocaine) Technique: incised with #11 blade and other Amount of fluid expressed (mL): 60 Irrigation: No Packing used?: none Complications: pain Limited Ultrasound Indication:: Soft tissue fluctuance Findings:: Large circular, isolated pocket of fluid under area of primary fluctuance suggestive of an abscess, some loculations noted Critical Care Critical Care Time Critical Care Time: No
[2024-08-25] MEDS: IBUPROFEN 800 MG TABLET PO (10:28)
[2024-08-25] MEDS: ACETAMINOPHEN 500MG TAB 1000 MG PO (10:28)
[2024-08-25 10:54] VITALS: BP 116/72; PULSE 79; RESP 18; O2SAT 98
[2024-08-25 11:00] VITALS: BP 116/71; PULSE 81; O2SAT 98
--- NOTE | 2024-08-25 11:11 | PC.NURSE ---
I rounded on pt, pt voiced she does not need anything at this time
[2024-08-25 11:30] VITALS: BP 115/70; PULSE 84; RESP 18; O2SAT 95
--- NOTE | 2024-08-25 11:45 | PC.NURSE ---
at bedside with US
--- NOTE | 2024-08-25 11:55 | PC.NURSE ---
EMLA cream applied to affected area per MD.
[2024-08-25 12:21] VITALS: BP 127/79; PULSE 77; RESP 16; O2SAT 97
--- NOTE | 2024-08-25 13:13 | PC.NURSE ---
1300 - @ bedside for I&D Culture obtained and sent to lab.
[2024-08-25 13:16] VITALS: BP 117/77; PULSE 77; RESP 16; TEMP 36.6; O2SAT 98
--- NOTE | 2024-08-25 13:26 | PC.NURSE ---
Pt DC'd w/ teresaz bath and provided education on use. Verbalized understanding.
--- NOTE | 2024-08-29 13:06 | PC.NURSE ---
WOUND CULTURE DISCUSSED WITH DR ERICKSON, NO NEW ORDERS
--- NOTE | 2024-08-30 12:22 | PC.NURSE ---
I spoke with about the pts wound culture. no change needed in treatment plan at this time.
--- NOTE | 2024-09-03 07:55 | PC.NURSE ---
Wound culture reviewed by Dr. Rodríguez. Advised to call and check if patient is improving. Antibiotic should be appropriate. Called and spoke with patient, she states wound is getting better. Advised her to finish antibiotics and to follow up with PCP if not improved after course of antibiotics finished. Patient verbalized understanding.
== END 2024-08-25 13:25 | disposition home or self-care (01) ==
PROVIDERS: Emergency Provider Student in an Organized Health Care Education/Training Program
DX: L02.31 Cutaneous abscess of buttock (principal)
CPT/HCPCS: 10060; 87070; 87077; 87186; 87205; 99283